=== PATIENT | male | born 1960 | race Caucasian/White ===

== ENCOUNTER → 2016-12-09 | Outpatient (CLI) | payer OTHER ==
[~2016-12-09] VITALS: Ht 182.9 cm; Wt 87.1 kg
[~2016-12-09] MED LIST: AMLOD-VALSA-HC1 EAC3 PO; ASPIR 8181 M1 PO; ATORVASTATIN CA80 MG PO; COLACE100 MG PO; ECOTRIN325 MG PO; ENOXAPARIN40 MG/0.4 SQ; JOINT PAIN MED PO; LIPITOR10 MG PO; LISINOPRIL10 MG PO; LISINOPRIL30 MG PO; LOPRESSOR100 M1 PO; LYRICA150 MG PO; METOPROLOL SUCC25 MG PO; METOPROLOL TART50 MG PO; NICODERM CQ1 EAC2 TD; NITROGLYCERIN0.4 MG SL; NITROSTAT0.4 MG SL; OXYCODONE HCL10 MG PO; PANTOPRAZOLE SO40 MG PO; PERCOCET 10/1 TABLET PO; PERCOCET 5/31 TABLET PO; PLAVIX75 MG PO; PROTONIX40 MG PO; SIMVASTATIN40 MG PO; ZANAFLEX4 MG PO
== END | disposition home or self-care (01) ==
LOC: AMB 08:15
PROC: 0DB68ZX Excision of Stomach, Via Natural or Artificial Opening Endoscopic, Diagnostic (ICD-10-PCS; principal; 2016-12-09)
DX: K29.90 Gastroduodenitis, unspecified, without bleeding (principal); E83.119 Hemochromatosis, unspecified; I69.359 Hemiplegia and hemiparesis following cerebral infarction affecting unspecified side; F17.200 Nicotine dependence, unspecified, uncomplicated; Z79.02 Long term (current) use of antithrombotics/antiplatelets; I25.2 Old myocardial infarction; I10 Essential (primary) hypertension
CPT/HCPCS: 88305; 88342 TC; J2250

== ENCOUNTER → 2017-08-16 | Outpatient (CLI) | payer OTHER ==
[~2017-08-16] MED LIST changes: +ADVAIR 250/501 DISK IH; +BREO ELLIPTA I1 EACH IH; +COMBIVENT RESPIM4 GM IH
== END | disposition home or self-care (01) ==
LOC: NUC 08:06
DX: R10.11 Right upper quadrant pain (principal)
CPT/HCPCS: 78264; A9541

== ENCOUNTER → 2017-08-24 | Outpatient (CLI) | payer OTHER | END | disposition home or self-care (01) | LOC: NUC 10:19 | DX: R10.11 Right upper quadrant pain (principal) | CPT/HCPCS: 78227; A9537; J2805 ==